=== PATIENT | male | born 1970 | race American Indian/Alaskan Native ===

== ENCOUNTER 2016-07-26 01:28 | Emergency (ER) | payer SELFPAY ==
--- NOTE | 2016-07-26 01:39 | C.PDOC ---
History Of Present Illness Patient smoked some marijuana and then developed some chest discomfort, nausea, and just not feeling well. Speaking in 3-4 word sentences. No f/c/n/v Time Seen by Provider: 07/26/16 01:38 Chief Complaint (Nursing): Chest Pain History Per: Patient History/Exam Limitations: no limitations Onset/Duration Of Symptoms: Hrs Current Symptoms Are (Timing): Still Present Context: Other (marijuana) Severity: Moderate Pain Scale Rating Of: 4 Quality: Dull, Aching, Tightness Associated Symptoms: Nausea, Dyspnea Modifying Factors: None Alleviating Factors: None Recent travel outside of the [place]: No Additional History Per: Family Past Medical History Reviewed: Historical Data, Nursing Documentation, Vital Signs Vital Signs: Last Vital Signs Temp 97.7 F 07/26/16 01:36 Pulse 89 07/26/16 03:08 Resp 20 07/26/16 03:08 BP 125/74 07/26/16 02:39 Pulse Ox 97 07/26/16 03:08 - Medical History PMH: HTN Family History: States: No Known Family Hx - Social History Hx Alcohol Use: Yes Hx Substance Use: Yes Review Of Systems Constitutional: Negative for: Fever, Chills Eyes: Negative for: Redness ENT: Negative for: Throat Pain Cardiovascular: Positive for: Chest Pain, Palpitations Respiratory: Positive for: Shortness of Breath Gastrointestinal: Positive for: Nausea. Negative for: Vomiting, Abdominal Pain Genitourinary: Negative for: Dysuria Musculoskeletal: Negative for: Back Pain Skin: Negative for: Rash, Lesions, Jaundice, Bruising Neurological: Negative for: Weakness Psych: Positive for: Anxiety Physical Exam - Physical Exam Appears: In Acute Distress Skin: Warm, Dry Head: Normacephalic Eye(s): bilateral: Normal Inspection Oral Mucosa: Moist Neck: Trachea Midline, Supple Chest: Symmetrical Cardiovascular: Rhythm Regular (tachy) Respiratory: No Rales, No Rhonchi, No Wheezing Gastrointestinal/Abdominal: Soft, No Tenderness, No Distention Back: Normal Inspection Extremity: Normal ROM Extremity: Bilateral: Atraumatic, Normal Color And Temperature, Normal ROM Neurological/Psych: Oriented x3, Normal Speech, Normal Cognition Gait: Steady ED Course And Treatment - Laboratory Results Result Diagrams: 07/26/16 01:54 07/26/16 02:39 ECG: Interpreted By Me, Viewed By Me ECG Rhythm: Sinus Rhythm (119), Nonspecific Changes Pulse Ox Interpretation: Normal - Radiology CXR: Interpreted by Me, Viewed By Me CXR Interpretation: Yes: Other (unchnaged from 01/21/16). No: Infiltrates, Fracture, Pnemothorax Progress Note: cardiac work up, asa, drug screen Reevaluation Time: 03:27 Reassessment Condition: Improved Critical Care Time - Critical Care Note Total Time (in mins): 30 Documented critical care: time excludes all time spent performing seperately billable procedures. Medical Decision Making Medical Decision Making: Upon provider reevaluation patient is feeling better, is medically stable, and requires no further treatment in the ED at this time. Patient will be discharged home . Counseling was provided and all questions were answered regarding diagnosis and need for follow up with the referred clinic. There is agreement to discharge plan. Return if symptoms persist or worsen. Disposition Counseled Patient/Family Regarding: Studies Performed, Diagnosis - Disposition Referrals: [facility] [Outside] Disposition: HOME/ ROUTINE Disposition Time: 01:38 Condition: FAIR Instructions: Anxiety (ED) - Clinical Impression Clinical Impression: Adverse reaction to cannabis, Anxiety
[2016-07-26 01:40] VITALS: BMI 25.7
[2016-07-26] MEDS ORDERED: Aspirin 325 mg EC Tablets PO STA (01:40)
[2016-07-26 01:41] VITALS: TEMP 97.7
[2016-07-26 02:04] LABS: BASO # 0.1 K/uL (0.0-0.2); BASO % 0.6 % (0.0-2.0); EOS # 0.3 K/uL (0.0-0.7); EOS % 3.3 % (0.0-4.0); HEMATOCRIT 45.5 % (35.0-51.0); LYMPH # 3.6 K/uL (1.0-4.3); LYMPH % 35.1 % (20.0-40.0); MEAN CELL VOLUME 85.2 fL (80.0-94.0); MEAN CORPUSCULAR HEMOGLOBIN 29.6 pg (27.0-31.0); MEAN CORPUSCULAR HGB CONC 34.7 g/dL (33.0-37.0); MEAN PLATELET VOLUME 9.4 fL (7.2-11.7); MONO # 1.2 K/uL (0.0-0.8); MONO % 11.7 % (0.0-10.0); RED CELL DISTRIBUTION WIDTH 13.8 % (11.5-14.5); WHITE BLOOD COUNT 10.3 K/uL (4.8-10.8)
[2016-07-26 02:53] LABS: CHLORIDE 96 mmol/L (98-107); SODIUM 135 mmol/L (132-148)
[2016-07-26 02:56] LABS: ALB/GLOB RATIO 1.3 (1.0-2.1); ALKALINE PHOSPHATASE 118 U/L (38-126); ALT/SGPT 24 U/L (21-72); AST/SGOT 51 U/L (17-59); BLOOD UREA NITROGEN 14 mg/dL (9-20); CALCIUM 8.8 mg/dl (8.6-10.4); CARBON DIOXIDE 24 mmol/L (22-30); GFR AFRICAN-AMERICAN > 60; GLUCOSE,RANDOM 306 mg/dL (75-110); POTASSIUM 4.8 mmol/L (3.6-5.2); TOTAL PROTEIN 8.5 g/dL (6.3-8.3)
[2016-07-26 03:28] VITALS: BP 118/72; RESP 18; O2SAT 98
[2016-07-26 03:36] VITALS: PULSE 88
--- NOTE | 2016-07-26 11:01 | RAD ---
PROCEDURE: CHEST RADIOGRAPH, 1 VIEW. Portable study 01:52. HISTORY: chest pain COMPARISON: 01/21/2016. FINDINGS: LUNGS: Clear. PLEURA: No pneumothorax or pleural fluid seen. CARDIOVASCULAR: Normal. OSSEOUS STRUCTURES: No significant abnormalities. VISUALIZED UPPER ABDOMEN: Normal. OTHER FINDINGS: None. IMPRESSION: No active disease. No acute/significant interval changes.
--- NOTE | 2016-07-28 02:01 | CARD ---
APPROVED REPORT EKG Measurement Heart [id number] ID [id number] <Conclusion> Sinus tachycardia with premature ventricular complexes or fusion complexes Rightward axis T wave abnormality, consider inferior ischemia Abnormal ECG
== END 2016-07-26 03:39 | disposition home or self-care (01) ==
LOC: C.ER 01:28 → SUPCPDRO 01:28 → C.ER 03:39
DX: T40.7X1A Poisoning by cannabis (derivatives), accidental (unintentional), initial encounter (principal); F41.9 Anxiety disorder, unspecified; F12.10 Cannabis abuse, uncomplicated
CPT/HCPCS: 71010; 80053; 82948; 83690; 83880; 84484; 85025; 85610; 85730; 93005; 96374; 99285; J2060